=== PATIENT | female | born 1970 | race Caucasian/White ===

== ENCOUNTER 2020-06-09 08:20 | Outpatient (CLI) | payer OTHER | END 2020-06-09 23:59 | disposition home or self-care (01) | LOC: LAB.R 08:20 | PROVIDERS: ATTEND Physician Assistant | DX: Z20.828 Contact with and (suspected) exposure to other viral communicable diseases (principal); B97.89 Other viral agents as the cause of diseases classified elsewhere ==

== ENCOUNTER 2020-07-12 08:05 | Outpatient (CLI) | payer OTHER ==
[2020-07-12 14:35] LABS: BASOPHILS # (AUTO) 0.1 10^3/uL (0.0-0.1); BASOPHILS % (AUTO) 1.7 %; EOSINOPHILS # (AUTO) 0.1 10^3/uL (0.0-0.7); EOSINOPHILS % (AUTO) 1.3 %; HGB - HEMOGLOBIN 13.7 g/dL (12.0-16.0); MEAN CORPUSCULAR HEMOGLOBIN 31.4 pg (27.0-31.0); MEAN CORPUSCULAR HGB CONC 33.6 g/dL (32.0-36.0); MEAN CORPUSCULAR VOLUME 93.6 fL (81.0-99.0); MEAN PLATELET VOLUME 10.9 fL (7.9-10.8); MONOCYTES # (AUTO) 0.6 10^3/uL (0.0-1.0); MONOCYTES % (AUTO) 7.2 %; NEUTROPHILS # (AUTO) 4.9 10^3/uL (1.5-6.6); NEUTROPHILS % (AUTO) 63.4 %; PLT - PLATELET COUNT 247 10^3/uL (130-450); RED BLOOD COUNT 4.36 10^6/uL (4.20-5.40); RED CELL DISTRIBUTION WIDTH 12.7 % (12.0-15.0); WHITE BLOOD COUNT 7.8 x10^3/uL (4.8-10.8)
[2020-07-12 14:50] LABS: ALBUMIN 4.4 g/dL (3.2-5.5); ALBUMIN/GLOBULIN RATIO 1.4 (1.0-2.2); ALKALINE PHOSPHATASE 49 IU/L (42-121); ALT ALANINE AMINOTRANSFERASE 20 IU/L (10-60); AST ASPARTATE AMINOTRANSFERASE 16 IU/L (10-42); BILIRUBIN,TOTAL 0.8 mg/dL (0.2-1.0); BUN - BLOOD UREA NITROGEN 10 mg/dL (6-20); CALCIUM 9.1 mg/dL (8.5-10.3); CARBON DIOXIDE - CO2 26 mmol/L (21-32); CHLORIDE 102 mmol/L (101-111); CHOLESTEROL 192 mg/dL; CREATININE 0.6 mg/dL (0.4-1.0); GLUCOSE 117 mg/dL (70-100); HDL CHOLESTEROL 63 mg/dL; LDL CHOLESTEROL,CALCULATED 113 mg/dL; LDL/HDL RATIO 1.8 (<4.4); SODIUM 137 mmol/L (135-145); TOTAL PROTEIN 7.5 g/dL (6.7-8.2); VLDL CHOLESTEROL 16 mg/dL
== END 2020-07-12 08:06 | disposition home or self-care (01) ==
LOC: LAB.S 08:05
PROVIDERS: ATTEND Registered Nurse
DX: R61 Generalized hyperhidrosis (principal)
CPT/HCPCS: 36415; 80053; 80061; 83721; 84443; 85025

== ENCOUNTER 2020-10-10 08:45 | Outpatient (CLI) | payer OTHER ==
--- NOTE | 2020-10-16 10:17 | Mammography Report ---
BILATERAL DIGITAL SCREENING MAMMOGRAM 3D/2D WITH EXAGGERATED CC: 10/10/2020 CLINICAL: Routine screening. Routine screening. Comparison is made to exams dated: 05/31/2015 mammogram, 04/07/2014 mammogram, and 04/04/2014 mammogram - [facility]. The tissue of both breasts is heterogeneously dense. This may lower the sensi tivity of mammography. No significant masses, calcifications, or other findings are seen in either breast. There has been no significant interval change. IMPRESSION: NEGATIVE There is no mammographic evidence of malignancy. A 1 year screening mammogram is recommended. This exam was interpreted at Station ID: [id number]. NOTE: For mammograms, a report in lay terms will be sent to the patient. Approximately 15% of breast malignancies will not be visualized mammographically. In the management of a palpable breast mass, a negative mammogram must not discourage biopsy of a clinically suspicious lesion. Electronically Signed By: Quintin Hallman acr/penrad:10/13/2020 19:42:39 ACR BI-RADS Category 1: Negative 3341F PARENCHYMAL PATTERN: (D) - The breast(s) demonstrate(s) heterogeneously dense fibroglandular paremily ma. BI-RADS CATEGORY: (1) - 1 RECOMMENDATION: (ANNUAL) - Recommend routine annual screening mammography. [id number] 1 year screening LATERALITY: (B)
== END 2020-10-10 08:46 | disposition home or self-care (01) ==
LOC: DI.S 08:45
PROVIDERS: ATTEND Registered Nurse
DX: Z12.31 Encounter for screening mammogram for malignant neoplasm of breast (principal)

== ENCOUNTER 2024-05-05 07:10 | Day surgery (SDC) | payer OTHER ==
[2024-05-05] MEDS: LACTATED RINGERS 1,000 ML IV ONE (07:29)
[2024-05-05] MEDS ORDERED: LIDOCAINE-MPF 2% 5 ML VIAL ONE (07:33)
[2024-05-05] MEDS ORDERED: PROPOFOL 500 MG/50 ML 500 MG/50 ML VIAL ONE (07:33)
--- NOTE | 2024-05-05 08:04 | ANESTHESIA ---
Pre-Anesthesia VS, & Labs - Diagnosis screening exam - Procedure colonoscopy Height: 5 ft 5 in Weight (kg): 71.5 kg Body Mass Index: 26.2 BMI Classification: Overweight - NPO >8 hours - Is Patient ?: No Home Medications and Allergies HRT MV Allergies/Adverse Reactions: Allergies Allergy/AdvReac Type Severity Reaction Status Date / Time Penicillins AdvReac Rash Verified 05/05/24 07:40 Anes History & Medical History - Anesthetic History Anesthesia Complications: reports: No previous complications - Medical History Cardiovascular: reports: None Pulmonary: reports: None Gastrointestinal: reports: None Urinary: reports: None Neuro: reports: None Musculoskeletal: reports: None Endocrine/Autoimmune: reports: None Blood Disorders: reports: None Skin: reports: None Smoking Status: Never smoker Psychosocial: reports: Alcohol (occ) History of Cancer?: No - Surgical History Gynecologic: reports: section Exam General: Alert, Oriented x3, Cooperative, No acute distress Dental: WNL Mouth Openin Fingerbreadth Neck Mobility: Normal Mallampati classification: II Thyromental Distance: 4-6 cm Mental/Cognitive Status: Alert/Oriented X3, Normal for patient Plan Anesthesia Type: General, Total IV Consent for Procedure(s) Verified and Reviewed: Yes Code Status: Attempt Resuscitation ASA classification: 1-Healthy patient Is this case an emergency?: No
[2024-05-05] MEDS ORDERED: MIDAZOLAM 2 MG/2 ML VIAL ONE (08:19)
[2024-05-05] MEDS: LACTATED RINGERS 900 ML IV ONE (09:52)
--- NOTE | 2024-05-05 12:50 | ANESTHESIA POST OP EVALUATION ---
Anesthesia Post Eval - Post Anesthesia Eval CV Function Including HR & BP: Stable Pain Control: Satisfactory Nausea & Vomiting: Negative Mental Status: Baseline Respiratory Status: Airway Patent Hydration Status: Satisfactory Anesthesia Complications: None
== END 2024-05-05 07:11 | disposition home or self-care (01) ==
LOC: SDS 07:10
PROVIDERS: ATTEND Surgery
PROC: 0DBP8ZZ Excision of Rectum, Via Natural or Artificial Opening Endoscopic (ICD-10-PCS; principal; 2024-05-05 08:15)
DX: Z12.11 Encounter for screening for malignant neoplasm of colon (principal); D12.8 Benign neoplasm of rectum; K64.4 Residual hemorrhoidal skin tags
CPT/HCPCS: 45385; J7120